=== PATIENT | male | born 1995 | race Two or more races ===

== ENCOUNTER 2018-03-05 18:23 | Emergency (ER) | payer BC ==
[2018-03-05 18:35] VITALS: BP 116/65
--- NOTE | 2018-03-05 19:21 | EDPHY ---
H & P Time Seen by Provider: 03/05/18 18:44 HPI/ROS: CHIEF COMPLAINT: Right ft and ankle pain HISTORY OF PRESENT ILLNESS: 22-year-old male complaining of acute right foot and ankle pain after he dropped a wheelbarrow on this area 5 days ago. He is able to bear weight albeit with pain. No paresthesia. PRIMARY CARE PROVIDER: REVIEW OF SYSTEMS: A ten point review of systems was performed and is negative with the exception of the items mentioned in the HPI PHYSICAL EXAM (Prior to examination, patient consented to physical exam, hands were washed and my usual and customary physical exam procedures followed) 1) GENERAL: Well-developed, well-nourished, alert and oriented. Appears to be in no acute distress. 2) HEAD: Normocephalic 3) HEENT: Pupils equal, round, reactive to light bilaterally. 4) LUNGS: Breathing comfortably. 5) MUSCULOSKELETAL: Soft tissue swelling to the dorsum of the left foot. Soft compartments. proximal tibia and fibula nontender .5th MT nontender negative Veloz test, compartments soft 6) SKIN: Soft tissue swelling noted. 7) VASCULAR: DP,PT pulses and cap refill present and brisk DIFFERENTIAL DIAGNOSIS: in no particular order including but not limited to fracture, sprain, compartment syndrome Procedure: Crutches indications for crutch use discussed with patient. Patient fitted for crutches by ER staff. Observed ambulating with crutches. I think the patient has the capacity to safely use crutches. Usual and customary crutch walking precautions provided Procedure: Splint A gabriella boot splint was applied by ER install and repair technician. After application of the splint I returned and re-examined the patient. The splint was adequately immobilizing the joint and distal to the splint the patient's circulation and sensation were intact. Patient shows no signs of compartment syndrome. Was given orthopedic precautions. Smoking Status: Current every day smoker Constitutional: Initial Vital Signs Temperature (C) 37.1 C 03/05/18 18:32 Heart Rate 68 03/05/18 18:32 Respiratory Rate 16 03/05/18 18:32 Blood Pressure 116/65 03/05/18 18:32 O2 Sat (%) 98 03/05/18 18:32 O2 Delivery Mode Room Air Allergies/Adverse Reactions: No Known Allergies Allergy (Unverified 03/05/18 18:31) Home Medications: Medication Instructions Recorded Advair 100/50 (*) 03/05/18 Albuterol 03/05/18 Spiriva Handihaler 03/05/18 MDM/Departure - MDM Imaging Results: Imaging Impressions Ankle X-Ray 03/05/18 18:52 Impression: 1. No acute osseous abnormality seen about the right ankle and foot. 2. Mild hallux valgus with bunion distal head of the first metatarsal. Foot X-Ray 03/05/18 18:52 Impression: 1. No acute osseous abnormality seen about the right ankle and foot. 2. Mild hallux valgus with bunion distal head of the first metatarsal. Images reviewed myself Imaging: I viewed and interpreted images myself ED Course/Re-evaluation: Neurovascular intact no evidence of compartment syndrome. Plan will be discharge with orthopedic follow-up information and precautions. Care of patient under supervision of secondary supervising physician Dr Mo. - Depart Disposition: Home, Routine, Self-Care Clinical Impression: Right foot sprain Qualifiers: Encounter type: initial encounter Qualified Code(s): S93.601A - Unspecified sprain of right foot, initial encounter Right ankle sprain Qualifiers: Encounter type: initial encounter Involved ligament of ankle: unspecified ligament Qualified Code(s): S93.401A - Sprain of unspecified ligament of right ankle, initial encounter Condition: Good Instructions: Ankle Sprain (ED), Foot Sprain (ED) Additional Instructions: Return to the ER immediately if you experience discoloration, have worsening pain, numbness, tingling, or any other symptoms that concern you. If you received x-rays in the emergency department today, be advised, that ligamentous , tendon, muscular, and other non-bony injury cannot be fully ruled out. Try to keep your affected extremity elevated above the level of your chest, and keep cold packs on the affected area, for the next 48 hours. Stand Alone Forms: Work Excuse Referrals: Gabe Holliday MD [Medical Doctor] - 2-3 days, call for appt.
== END 2018-03-05 19:24 | disposition home or self-care (01) ==
LOC: MERGE 18:23
DX: S93.601A Unspecified sprain of right foot, initial encounter (principal); S93.401A Sprain of unspecified ligament of right ankle, initial encounter; F17.200 Nicotine dependence, unspecified, uncomplicated; W20.8XXA Other cause of strike by thrown, projected or falling object, initial encounter
CPT/HCPCS: L4386